=== PATIENT | female | born 1985 | race Caucasian/White ===

== ENCOUNTER 2017-11-04 15:29 | Inpatient (IN) | payer SELFPAY ==
[~2017-11-04] VITALS: Ht 170.2 cm; Wt 50.6 kg
[2017-11-04 15:30] VITALS: BP 162/83; PULSE 99; RESP 19; TEMP 98.2; O2SAT 98
[2017-11-04] MEDS ORDERED: ALUMINUM/MAGNESIUM/SIMETH 30 ML CUP PO PRN (16:45)
[2017-11-04] MEDS: NICOTINE 21 MG/24 HR PATCH T-DERMAL SCH (16:45)
[2017-11-04] MEDS ORDERED: LORazepam 2 MG/ML VIAL IM PRN ×2 (16:45)
[2017-11-04] MEDS ORDERED: MAGNESIUM HYDROXIDE SUSP 30 ML CUP PO PRN (16:45)
[2017-11-04] MEDS ORDERED: PROZ20CA11 PO (16:54)
[2017-11-04] MEDS ORDERED: RITALIN (16:55)
[2017-11-04] MEDS ORDERED: ALPR.5 PO (16:56)
[2017-11-04] MEDS ORDERED: REMOVE OLD NICODERM (NICOTINE) PATCH T-DERMAL SCH (21:00)
[2017-11-05 06:18] VITALS: BP 130/70; PULSE 92; RESP 18; TEMP 97.8; O2SAT 99
[2017-11-05 07:08] LABS: BICARBONATE 23.7 MEQ/L (21.0-32.0); BLOOD UREA NITROGEN 12 MG/DL (7-18); CALCIUM 8.9 MG/DL (8.5-10.1); CHLORIDE 107 MEQ/L (98-107); GLOMERULAR FILTRATION RATE 98 ML/MIN (>89); GLUCOSE,RANDOM 75 MG/DL (74-106); SODIUM (NA) 140 MEQ/L (136-145)
[2017-11-05 07:09] LABS: CHOLESTEROL 166 MG/DL (120-200); TRIGLYCERIDES 62 MG/DL (42-150)
[2017-11-05 07:11] LABS: CHOLESTEROL/ HDL RATIO 2.46 RATIO; HDL CHOLESTEROL 67.3 MG/DL (40.0-60.0); LDL CHOLESTEROL 86 MG/DL (0-99)
[2017-11-05] MEDS: NICOTINE 21 MG/24 HR PATCH T-DERMAL SCH (09:00)
[2017-11-05] MEDS ORDERED: hydrOXYzine HCL 50 MG TAB PO PRN (13:45)
--- NOTE | 2017-11-05 13:55 | HHI.HP ---
Provisional Diagnosis Admission Date Nov 04, 2017 at 15:31 Gore I. Substance-induced psychosis, marijuana abuse, amphetamine abuse Certification of Person's Competence To Provide Express and Informed Consent I have personally examined Yris Montaño , a person being served at [facility] on, Nov 05, 2017 13:42. Express and informed consent means consent voluntarily given in writing, by a competent person, after sufficient explanation and disclosure of the subject matter involved to enable the person to make a knowing and willful decision without any element of force, fraud, deceit, duress, or other form of constraint or coercion. This person is 18 years of age or older, is not now known to be incompetent to consent to treatment with a guardian advocate, and does not have a health care surrogate or proxy currently making medical treatment decisions. I have found this person to be one of the following: [xxx] Competent to provide express and informed consent, as defined above, for voluntary admission to this facility and is competent to provide express and informed consent for treatment. He/she has the consistent capacity to make well reasoned, willful, and knowing decisions concerning his or her medical or mental health treatment. The person fully and consistently understands the purpose of the admission for examination/placement and is fully capable of personally exercising all rights assured [place] Incompetent to provide express and informed consent to voluntary admission, and this is incompetent to provide express and informed consent to treatment. The person must be transferred to involuntary status and a petition for a guardian advocate filed with the Circuit Court. [] Refusing to provide express and informed consent to voluntary admission but is competent to provide express and informed consent for treatment. The person must be discharged or transferred to involuntary status. Form shall be completed within 24 hours of a person's arrival at the receiving facility and filed in the clinical record of each person: 1. Admitted on a voluntary basis 2. Permitted to provide express and informed consent to his/her own treatment 3. Allowed to transfer from involuntary to voluntary status 4. Prior to permitting a person to consent to his or her own treatment after having been previously found incompetent to consent to treatment. History of Present Illness Capacity: Has Capacity HPI Patient is a 32-year-old white female who comes here under a Tabares act from [facility] Tabares act dated 11/03/2017 at 1:30 AM signed by jenise Colmenares that document reviewed it states 32-year-old female presents with paranoia and obsession with the Bible complains of suicidal thoughts. Patient seen screen at that facility urine toxicology positive for amphetamines and methamphetamines, and marijuana, alcohol level negative. Patient transferred to this facility under the Tabares act. At the present time patient sitting quietly on exam room nurse Monica throughout session. Patient is a very thin and slender white female appears her stated age somewhat distraught anxious and at times somewhat tearful. Stating she is not taking any medication since this process was started which includes Prozac 20 mg daily and as needed Xanax. She states she lives in [facility] is come down here with her 2-year-old son a few days ago to visit with her family. She is not a specific reason for her behaviors. Patient states she was seeing a psychiatrist in [place] though she is not looking for It appears she has prescribed her various drugs including psychostimulants and benzodiazepines. She is vague about any inpatient psychiatric hospitalizations she is vague about any detox or rehab programs. Though she does acknowledge multiple prior drug usage including alcohol and marijuana cocaine mushrooms in the hallucinogenic's she does deny benzodiazepines or opiates abuse. She denies detox and rehab. She states she did have 1 arrest in the past when the illegal substances found in her car. Patient became somewhat more anxious when discussing her substance abuse history. She was vague about any intravenous drug abuse. She does deny suicidality homicidality voices or visions. When asked about the urine toxicology results should became somewhat angry says she wanted to have a repeat urine toxicology drawn. Though she did not deny using his drugs she just did not respond to the question. In any event at the present time patient does not meet Tabares criteria for inpatient psychiatric hospitalization on an involuntary basis. I will lift Tabares act. Patient does wish to be discharged. The B no prescription written by me. Patient states she has a Prozac and Xanax with her here in [place]. Thus patient will be discharged to herself with no Rx by me she may take her own scheduled medications. Follow-up with private psychiatrist and counseling either down here through her family are up in [facility]. Would recommend absolute abstinence patient states she does not like going to NA meetings Review of Systems Except as stated in HPI: all other systems reviewed are Neg Past Psych History Psychological trauma history Patient denies Violence risk - others (6 mos) Low Violence risk - self (6 mos) Low Substance Abuse History Drugs/Alcohol past 12 months Patient states multiple year history of multiple drug abuse low she also acknowledges most of those have not been recent Past Family Social History Coded Allergies: No Known Allergies (Unverified , 11/04/17) Reported Medications Alprazolam (Xanax) 0.5 Mg Tab, 0.5 MG PO 3XWEEKLY Y for ANXIETY, TAB 0 Refills 11/04/17 [Ritalin] No Conflict Check 11/04/17 Fluoxetine (Prozac) 20 Mg Cap, 20 MG PO DAILY, #30 CAP 0 Refills 11/04/17 Current Medications Medications (Trade) Dose Ordered Sig/El Route Start Time Stop Time Status Last Admin (Ativan Inj) 1 mg Q6H PRN IM 11/04/17 16:45 Future Hold (Milk Of Magnesia Liq) 30 ml DAILY PRN PO 11/04/17 16:45 (Mag-Al Plus Susp Liq) 30 ml Q6H PRN PO 11/04/17 16:45 (Habitrol 21 Mg Patch.24 Hr) 1 patch DAILY T-DERMAL 11/04/17 16:45 Miscellaneous Information 1 HS T-DERMAL 11/04/17 21:00 Family Psych History Patient denies Social History Patient lives with her significant other and her 2-year-old son Patient's Strengths (min. 2) Patient verbal able access healthcare Physical Exam Patient medically cleared [facility] at the present time patient sitting and is somewhat tearful and anxious states in the exam room. She is in no acute distress, she is in no respiratory distress, no complaints of chest pain, no complaints of abdominal pain, patient moves all 4 extremities without difficulty Vital Signs Vital Signs Date Time Temp Pulse Resp B/P (MAP) Pulse Ox O2 Delivery O2 Flow Rate FiO2 11/05/17 06:18 97.8 92 18 130/70 (90) 99 Lab Results Test 11/05/17 06:08 Blood Urea Nitrogen 12 MG/DL Creatinine 0.70 MG/DL Random Glucose 75 MG/DL Calcium Level 8.9 MG/DL Sodium Level 140 MEQ/L Potassium Level 3.5 MEQ/L Chloride Level 107 MEQ/L Carbon Dioxide Level 23.7 MEQ/L Anion Gap 9 MEQ/L Estimat Glomerular Filtration Rate 98 ML/MIN Triglycerides Level 62 MG/DL Cholesterol Level 166 MG/DL LDL Cholesterol 86 MG/DL HDL Cholesterol 67.3 MG/DL Cholesterol/HDL Ratio 2.46 RATIO Mental Status Examination Appearance: Appropriate Consciousness: Alert Orientation: x4 Motor Activity: Normal gait Speech: Unremarkable, Rapid (Slight increased rate) Language: Adequate Fund of Knowledge: Adequate Attention and Concentration: Easily Distracted Memory: Unremarkable Mood: Sad, Anxious, Irritable Affect: Other (Increased rate and intensity) Thought Process & Associations: Intact Thought Content: Appropriate Hallucination Type: None Delusion Type: None Suicidal Ideation: No Suicidal Plan: No Suicidal Intention: No Homicidal Ideation: No Homicidal Plan: No Homicidal Intention: No Insight: Fair Judgment: Impulsive Assessment & Plan Problem List: (1) Substance-induced psychotic disorder ICD Codes: F19.959 - Other psychoactive substance use, unspecified with psychoactive substance-induced psychotic disorder, unspecified (2) Amphetamine abuse ICD Codes: F15.10 - Other stimulant abuse, uncomplicated (3) Marijuana abuse ICD Codes: F12.10 - Cannabis abuse, uncomplicated Assessment & Plan Estimated LOS: days patient does not meet Tabares criteria lift Tabares act. Patient denies suicidality homicidality voice or visions, is able contract to do no harm. Thus I will lift Tabares act allow patient to be discharged herself with no Rx by me, she may continue her own home medications. Follow-up with mental health services back in [facility] R of remains local perhaps through Rickie Marchman act Discharge Planning See above Request HC Surrog/Guard Advoc?: No Angel Jones MD Nov 05, 2017 13:55
--- NOTE | 2017-11-05 13:59 | HHI.DS ---
Psychiatry Discharge Summary Inpatient Psychiatric care?: Yes Advance Directive: No Reason Not Provided: DOES NOT HAVE Mental Health AdvanceDirective: No Health Care Proxy: No Admission Admission Date Nov 04, 2017 at 15:31 Admission Diagnosis: (1) Substance-induced psychotic disorder ICD Code: F19.959 - Other psychoactive substance use, unspecified with psychoactive substance-induced psychotic disorder, unspecified (2) Amphetamine abuse ICD Code: F15.10 - Other stimulant abuse, uncomplicated (3) Marijuana abuse ICD Code: F12.10 - Cannabis abuse, uncomplicated Brief History Patient is a 32-year-old white female who comes here under a [facility] Tab[facility] act dated 11/03/2017 at 1:30 AM signed by a Constantine Colmenares that document reviewed it states 32-year-old female presents with paranoia and obsession with the Bible complains of suicidal thoughts. Patient seen screen at that facility urine toxicology positive for amphetamines and methamphetamines, and marijuana, alcohol level negative. Patient transferred to this facility under the Tabares act. At the present time patient sitting quietly on exam room nurse Monica throughout session. Patient is a very thin and slender white female appears her stated age somewhat distraught anxious and at times somewhat tearful. Stating she is not taking any medication since this process was started which includes Prozac 20 mg daily and as needed Xanax. She states she lives in [place] is come down here with her 2-year-old son a few days ago to visit with her family. She is not a specific reason for her behaviors. Patient states she was seeing a psychiatrist in [place] though she is not looking for It appears she has prescribed her various drugs including psychostimulants and benzodiazepines. She is vague about any inpatient psychiatric hospitalizations she is vague about any detox or rehab programs. Though she does acknowledge multiple prior drug usage including alcohol and marijuana cocaine mushrooms in the hallucinogenic's she does deny benzodiazepines or opiates abuse. She denies detox and rehab. She states she did have 1 arrest in the past when the illegal substances found in her car. Patient became somewhat more anxious when discussing her substance abuse history. She was vague about any intravenous drug abuse. She does deny suicidality homicidality voices or visions. When asked about the urine toxicology results should became somewhat angry says she wanted to have a repeat urine toxicology drawn. Though she did not deny using his drugs she just did not respond to the question. In any event at the present time patient does not meet Tabares criteria for inpatient psychiatric hospitalization on an involuntary basis. I will lift Tabares act. Patient does wish to be discharged. The B no prescription written by me. Patient states she has a Prozac and Xanax with her here in [place]. Thus patient will be discharged to herself with no Rx by me she may take her own scheduled medications. Follow-up with private psychiatrist and counseling either down here through her family are up in [facility]. Would recommend absolute abstinence patient states she does not like going to NA meetings Tobacco Use In Past 30 Days: No Tobacco Past 30 Days Alcohol Use: Monthly or Less Hospital Course Please see dictation under brief history. Patient does not meet Tabares criteria lift Tabares act allow patient be discharged. Patient denies suicidality homicidality voices or visions, is able contract to do no harm. The B no Rx by me. She may continue on home medications. Follow-up [facility] act substance abuse assessment and mental health treatment if she remains locally, or follow-up mental health and substance abuse counseling in [place] she returns to their, absolute sobriety Results Blood Pressure 130 / 70 Vital Signs Date Time Temp Pulse Resp B/P (MAP) Pulse Ox O2 Delivery O2 Flow Rate FiO2 11/05/17 06:18 97.8 92 18 130/70 (90) 99 Laboratory Tests Test 11/05/17 06:08 HDL Cholesterol 67.3 MG/DL (40.0-60.0) Laboratory Results Test 11/05/17 06:08 Cholesterol Level 166 MG/DL (120-200) HDL Cholesterol 67.3 MG/DL (40.0-60.0) LDL Cholesterol 86 MG/DL (0-99) Triglycerides Level 62 MG/DL (42-150) Summary of Procedures None done Pending results at discharge: No Medications # of Antipsychotic meds at D/C: 0 Approp Antipsych med options 1 - Minimum of three failed multiple trials of monotherapy. 2 - Documented plan to taper to monotherapy due to previous use of multiple meds OR cross-taper in progress at D/C. 3 - Documentation of augmentation of Clozapine. 4 - Justification other than those listed in allowable values 1-3, document here : Discharge Discharge Date: Nov 05, 2017 Discharge Diagnosis: (1) Marijuana abuse Diagnosis: Secondary ICD Code: F12.10 - Cannabis abuse, uncomplicated (2) Amphetamine abuse Diagnosis: Secondary ICD Code: F15.10 - Other stimulant abuse, uncomplicated (3) Substance-induced psychotic disorder Diagnosis: Principal ICD Code: F19.959 - Other psychoactive substance use, unspecified with psychoactive substance-induced psychotic disorder, unspecified Pt Condition on Discharge: Stable Discharge Disposition: Discharge Home Discharge Instructions Diet Instructions: As Tolerated, No Restrictions Activities you can perform: Regular-No Restrictions Scheduled Appointment: Rickie Emmanuel Discharge Time > 30 minutes Mental Status Examination Appearance: Appropriate Consciousness: Alert Orientation: x4 Motor Activity: Normal gait Speech: Unremarkable, Rapid (Slight increased rate) Language: Adequate Fund of Knowledge: Adequate Attention and Concentration: Easily Distracted Memory: Unremarkable Mood: Sad, Anxious, Irritable Affect: Other (Increased rate and intensity) Thought Process & Associations: Intact Thought Content: Appropriate Hallucination Type: None Delusion Type: None Suicidal Ideation: No Suicidal Plan: No Suicidal Intention: No Homicidal Ideation: No Homicidal Plan: No Homicidal Intention: No Insight: Fair Judgment: Impulsive Discharge/Advance Care Plan Health Problems: (1) Substance-induced psychotic disorder (2) Amphetamine abuse (3) Marijuana abuse Goals to promote your health * To prevent worsening of your condition and complications * To maintain your health at the optimal level Directions to meet your goals Take your medications as prescribed Follow your dietary instruction Follow activity as directed Keep your appointments as scheduled Take your immunizations and boosters as scheduled If your symptoms worsen call your PCP, if no PCP go to Urgent Care Center or Emergency Room For 09/12 questions related to your inpatient stay or results of tests pending at discharge, please contact Dr. Angel Jones at Smoking is Dangerous to Your Health. Avoid second hand smoking Angel Jones MD Nov 05, 2017 13:59
[2017-11-05 17:48] LABS: HEMOGLOBIN A1C 4.6 % (4.3-6.0)
== END 2017-11-05 16:30 | disposition home or self-care (01) | DRG 897 ==
LOC: H270 15:31
PROVIDERS: ADMIT Psychiatry & Neurology Psychiatry; ATTEND Psychiatry & Neurology Psychiatry
DX: F15.159 Other stimulant abuse with stimulant-induced psychotic disorder, unspecified (principal); F12.159 Cannabis abuse with psychotic disorder, unspecified
CPT/HCPCS: 80048; 80061; 83036